=== PATIENT | male | born 1985 | race Caucasian/White ===

== ENCOUNTER 2020-11-17 18:54 | Emergency (ER) | payer MEDICAID, OTHER ==
[~2020-11-17] VITALS: Ht 170.2 cm; Wt 154.6 kg
[~2020-11-17 18:54] MED LIST: ALBU6.7H9 INH; HYDR1TAB PO; NO HOME MEDS; PANT40TA39 PO; PROM25TA14 PO
[2020-11-17] MEDS ORDERED: DOXY100C77 PO (19:08)
[2020-11-17] MEDS ORDERED: CEPH250T PO (19:08)
[2020-11-17 19:49] VITALS: BP 140/92
== END 2020-11-17 19:51 | disposition home or self-care (01) ==
LOC: ER 18:55
DX: R05 Cough (principal); L08.9 Local infection of the skin and subcutaneous tissue, unspecified; R09.81 Nasal congestion; R43.8 Other disturbances of smell and taste; Z86.14 Personal history of Methicillin resistant Staphylococcus aureus infection; Z88.2 Allergy status to sulfonamides; Z91.013 Allergy to seafood; Z79.2 Long term (current) use of antibiotics; Z79.899 Other long term (current) drug therapy
CPT/HCPCS: 99283

== ENCOUNTER 2023-04-24 20:55 | Emergency (ER) | payer SELFPAY ==
[~2023-04-24] VITALS: Ht 177.8 cm; Wt 147.7 kg
[~2023-04-24 20:55] MED LIST changes: +ALBU6.7H14 INH; -ALBU6.7H9 INH
[2023-04-24 21:15] VITALS: BP 139/85
[2023-04-25] MEDS ORDERED: CEPH-585 PO (00:28)
[2023-04-25] MEDS ORDERED: CLIN300C17 PO (00:28)
== END 2023-04-25 00:42 | disposition home or self-care (01) ==
LOC: ER 20:56
DX: L08.9 Local infection of the skin and subcutaneous tissue, unspecified (principal); Z88.2 Allergy status to sulfonamides; Z91.013 Allergy to seafood
CPT/HCPCS: 99283; A6407

== ENCOUNTER 2023-12-03 03:18 | Emergency (ER) | payer MEDICAID ==
[~2023-12-03] VITALS: Ht 177.8 cm; Wt 159.1 kg
[~2023-12-03 03:18] MED LIST changes: +CEPH-585 PO; +CLIN300C17 PO
[2023-12-03] MEDS ORDERED: DOXY-224 PO (03:41)
[2023-12-03] MEDS: acetaminophen 325mg tablet PO ONE (03:59)
[2023-12-03] MEDS: DOXYCYCLINE 100MG CAPSULE PO STA (04:04)
[2023-12-03] MEDS: cephalexin 500mg capsule PO ONE (04:04)
[2023-12-03 04:05] VITALS: BP 136/61; PULSE 109; RESP 18; TEMP 99.6; O2SAT 95
== END 2023-12-03 04:11 | disposition home or self-care (01) ==
LOC: ER 03:18
DX: J18.9 Pneumonia, unspecified organism (principal); Z86.14 Personal history of Methicillin resistant Staphylococcus aureus infection; Z88.2 Allergy status to sulfonamides; Z79.899 Other long term (current) drug therapy
CPT/HCPCS: 71046; 99283